=== PATIENT | male | born 1960 | race Caucasian/White ===

== ENCOUNTER 2021-12-06 10:16 | Emergency (ER) | payer SELFPAY ==
[2021-12-06 10:59] LABS: Absolute Lymphocytes (CBC) 1.1 K/uL (0.7-4.9); Hematocrit 42.5 % (39.6-49.0); Lymphocytes % 12.8 % (15.3-44.8); MPV 7.9 fL (7.6-11.3); RBC Red Blood Cell Count 4.69 M/uL (4.33-5.43)
[2021-12-06 11:17] LABS: Albumin 3.4 g/dL (3.4-5.0); Bilirubin Total 0.8 mg/dL (0.2-1.0); Potassium 3.7 mmol/L (3.5-5.1); Protein, Total 8.3 g/dL (6.4-8.2)
--- NOTE | 2021-12-06 12:30 | RAD REPORT ---
EXAM DESCRIPTION: RAD - Foot Left 3 View - 12/06/2021 12:23 pm CLINICAL HISTORY: SWELLING COMPARISON: No comparisons FINDINGS/IMPRESSION: No acute fracture. Osteopenia. No malalignment. No radiographic evidence of ost eomyelitis. MRI more sensitive in the acute phase.
--- NOTE | 2021-12-06 12:31 | RAD REPORT ---
EXAM DESCRIPTION: RAD - Foot Right 3 View - 12/06/2021 12:23 pm CLINICAL HISTORY: Rash, swelling COMPARISON: No comparisons FINDINGS/IMPRESSION: No acute fracture. No malalignment. Plantar aspect calcaneal spurring. No radio graphic evidence of osteomyelitis. MRI is more sensitive in the acute phase. Osteopenia.
--- NOTE | 2021-12-06 12:56 | ER ---
Nurse's Notes [facility] Name: Bean Adams Age: 61 yrs Sex: Male : 1960 Arrival Date: 12/06/2021 Time: 10:17 Bed 5 Private MD: Jignesh Bauer Diagnosis: Cellulitis of right lower limb;Cellulitis of left lower limb Presentation: 12/06 10:32 Chief complaint: Patient states: Sent by Dr. Bauer for blood work to get put on a antibiotics for infection to bilateral feet. Pt reports that the infection has been ongoing since Summer 2020. Denies pain/ fever. Coronavirus screen: Client denies travel out of the [place] in the last 14 days. Ebola Screen: Patient denies exposure to infectious person. Patient denies travel to an Ebola-affected area in the 21 days before illness onset. Initial Sepsis Screen: Does the patient meet any 2 criteria? HR > 90 bpm. No. Patient's initial sepsis screen is negative. Does the patient have a suspected source of infection? Yes: Skin breakdown/wound. Risk Assessment: Do you want to hurt yourself or someone else? Patient reports no desire to harm self or others. Onset of symptoms was February 2021. 10:32 Method Of Arrival: Ambulatory ss 10:32 Acuity: AMPARO 3 ss Triage Assessment: 10:35 General: Appears in no apparent distress. comfortable, Behavior is calm, cooperative. ss Neuro: Level of Consciousness is awake, alert, obeys commands, Oriented to person, place, time, situation. Respiratory: Airway is patent Respiratory effort is even, unlabored, Respiratory pattern is regular, symmetrical. Historical: - Allergies: 10:34 No Known Allergies; ss - Home Meds: 10:35 None [Active]; ss - PMHx: 10:35 None; ss - Immunization history:: Client reports having NOT received the Covid vaccine. - Social history:: Smoking status: Patient denies any tobacco usage or history of. Screenin:21 Abuse screen: Denies threats or abuse. Denies injuries from another. Nutritional jl7 screening: No deficits noted. Tuberculosis screening: No symptoms or risk factors identified. Fall Risk IV access (20 points). Assessment: 10:45 General: Appears in no apparent distress. uncomfortable, Behavior is calm, cooperative, jl7 appropriate for age. Pain: Denies pain. Neuro: Level of Consciousness is awake, alert, obeys commands, Oriented to person, place, time, situation. Cardiovascular: Patient's skin is warm and dry. Respiratory: Airway is patent Respiratory effort is even, unlabored, Respiratory pattern is regular, symmetrical. Derm: Skin is pink, warm \T\ dry. Musculoskeletal: Swelling. 11:00 Reassessment: Pt reports right foot has been like this since last summer, swelling jl7 decreases with elevation, denies pain. Reports Dr. Bauer sent me to ED to have blood work because he didn't want to give me strong antibiotics without having bloodwork to look at my kidneys and he said he wants imaging to see if there's pus under the skin. 12:30 Reassessment: Patient appears in no apparent distress at this time. No changes from jl7 previously documented assessment. Patient and/or family updated on plan of care and expected duration. Pain level reassessed. Patient is alert, oriented x 3, equal unlabored respirations, skin warm/dry/pink. Vital Signs: 10:32 BP 142 / 93; Pulse 110; Resp 16; Temp 97.0(TE); Pulse Ox 98% on R/A; Weight 113.4 kg; ss Height 5 ft. 10 in. (177.80 cm); Pain 0/10; 11:21 BP 149 / 106; Pulse 106; Resp 15; Pulse Ox 98% ; Pain 0/10; jl7 12:30 BP 145 / 95; Pulse 100; Resp 15; Pulse Ox 99% ; jl7 10:32 Body Mass Index 35.87 (113.40 kg, 177.80 cm) ED Course: 10:17 Patient arrived in ED. am2 10:17 Jignesh Bauer MD is Private Physician. am2 10:34 Noel Ramos NP is PHCP. pm1 10:34 Sidney Solomon DO is Attending Physician. pm1 10:34 Triage completed. ss 10:34 Arm band placed on left wrist. ss 11:16 Humza Zuñiga RN is Primary Nurse. jl7 11:21 Patient has correct armband on for positive identification. Bed in low position. Call jl7 light in reach. Side rails up X 1. Pulse ox on. NIBP on. Warm blanket given. 11:21 Initial lab(s) drawn, by me, sent to lab. Inserted saline lock: 20 gauge in left jl7 antecubital area, using aseptic technique. Blood collected. 12:25 Foot Right 3 View XRAY In Process Unspecified. EDMS 12:25 Foot Left 3 View XRAY In Process Unspecified. EDMS 12:56 Jignesh Bauer MD is Referral Physician. pm1 13:30 No provider procedures requiring assistance completed. IV discontinued, intact, jl7 bleeding controlled, No redness/swelling at site. Pressure dressing applied. Administered Medications: No medications were administered Outcome: 12:56 Discharge ordered by MD. pm1 13:30 Discharged to home ambulatory. jl7 13:30 Condition: stable 13:30 Discharge instructions given to patient, family, Instructed on discharge instructions, follow up and referral plans. medication usage, Demonstrated understanding of instructions, follow-up care, medications, Prescriptions given X 2. 13:32 Patient left the ED. jl7 Signatures: Dispatcher [employer] EDNC Whitley Hull RN RN Noel Ramos, HEAD START TEACHER HEAD START TEACHER pm1 Humza Zuñiga RN RN jl7 Mayelin Rodriguez am2
--- NOTE | 2021-12-06 12:57 | EDPHYS ---
Physician Documentation [facility] Name: Bean Adams Age: 61 yrs Sex: Male : 1960 Arrival Date: 12/06/2021 Time: 10:17 Bed 5 Private MD: Jignesh Bauer ED Physician Sidney Solomon HPI: 12/06 10:39 This 61 yrs old Male presents to ER via Ambulatory with complaints of Foot problem. pm1 10:39 Onset: The symptoms/episode began/occurred February 2021. Associated signs and symptoms: pm1 Pertinent positives: Redness swelling and flaking of skin to bilateral feet, Pertinent negatives: Pain, fever. Modifying factors: The patient symptoms are alleviated by Antifungal cream OTC, and elevation of feet. Swelling is resolved when he wakes up in the morning. The patient has not experienced similar symptoms in the past. The patient has been recently seen by a physician: Dr. Bauer. 10:39 Patient was seen in the office today by Dr. Bauer was sent to the ER for further pm1 evaluation and treatment with blood work and imaging. Patient refused to be admitted by Dr. Bauer. Historical: - Allergies: 10:34 No Known Allergies; ss - Home Meds: 10:35 None [Active]; ss - PMHx: 10:35 None; ss - Immunization history:: Client reports having NOT received the Covid vaccine. - Social history:: Smoking status: Patient denies any tobacco usage or history of. ROS: 10:39 Constitutional: Negative for fever, chills, and weight loss, Cardiovascular: Negative pm1 for chest pain, palpitations, and edema, Respiratory: Negative for shortness of breath, cough, wheezing, and pleuritic chest pain, Abdomen/GI: Negative for abdominal pain, nausea, vomiting, diarrhea, and constipation, MS/Extremity: Negative for injury and deformity. 10:39 Skin: Positive for erythema, swelling, Flaking skin to bilateral feet. 10:39 All other systems are negative. Exam: 10:39 Constitutional: This is a well developed, well nourished patient who is awake, alert, pm1 and in no acute distress. Head/Face: Normocephalic, atraumatic. 10:39 Abdomen/GI: Soft, non-tender, with normal bowel sounds. No distension or tympany. No guarding or rebound. No evidence of tenderness throughout. Back: No spinal tenderness. No costovertebral tenderness. Full range of motion. Skin: Warm, dry with normal turgor. Normal color with no rashes, no lesions, and no evidence of cellulitis. MS/ Extremity: Pulses equal, no cyanosis. Neurovascular intact. Full, normal range of motion. 10:39 Cardiovascular: Exam negative for acute changes, Rate: normal, Rhythm: regular, Pulses: no pulse deficits are appreciated. 10:39 Respiratory: Exam negative for acute changes, respiratory distress, shortness of breath. 10:39 Neuro: Exam negative for acute changes, Orientation: is normal, Mentation: is normal, Motor: is normal, moves all fours. Vital Signs: 10:32 BP 142 / 93; Pulse 110; Resp 16; Temp 97.0(TE); Pulse Ox 98% on R/A; Weight 113.4 kg; ss Height 5 ft. 10 in. (177.80 cm); Pain 0/10; 11:21 BP 149 / 106; Pulse 106; Resp 15; Pulse Ox 98% ; Pain 0/10; jl7 12:30 BP 145 / 95; Pulse 100; Resp 15; Pulse Ox 99% ; jl7 10:32 Body Mass Index 35.87 (113.40 kg, 177.80 cm) ss MDM: 10:39 Patient medically screened. pm1 12:16 ED course: Bedside ultrasound performed to left and no abscess seen. Cobblestoning pm1 apparent on ultrasound which correlates with impression of cellulitis. 12:33 Refusal of service: The patient/guardian displays adequate decision making capability pm1 and despite a detailed discussion of alternatives, benefits, risks, and consequences refuses: Admission to the hospital for further work-up and treatment. 12:34 Physician consultation: Jignesh Bauer MD was called at 12:34, would like medications pm1 started, Bactrim and Santyl, wound care center contact information. 12:39 Data reviewed: vital signs. Data interpreted: Pulse oximetry: on room air is 98 %. pm1 Interpretation: normal. Counseling: I had a detailed discussion with the patient and/or guardian regarding: the historical points, exam findings, and any diagnostic results supporting the discharge/admit diagnosis, lab results, radiology results, the need for outpatient follow up, to return to the emergency department if symptoms worsen or persist or if there are any questions or concerns that arise at home. 13:20 ED course: Contacted wound care and gave them his information. they will set up an pm1 appointment with him. 12/06 10:39 Order name: CBC with Diff; Complete Time: 11:05 pm1 12/06 10:39 Order name: CMP; Complete Time: 11:19 pm1 12/06 10:39 Order name: IV Saline Lock; Complete Time: 10:49 pm1 12/06 11:05 Order name: Foot Right 3 View XRAY; Complete Time: 12:32 pm1 12/06 11:05 Order name: Foot Left 3 View XRAY; Complete Time: 12:32 pm1 Administered Medications: No medications were administered Disposition: 22:06 Co-signature as Attending Physician, Sidney BOYKIN was immediately available on-site ms3 in the Emergency Department for consultation in the care of the patient.. Disposition Summary: 12/06/21 12:56 Discharge Ordered Location: Home pm1 Problem: new pm1 Symptoms: have improved pm1 Condition: Stable pm1 Diagnosis - Cellulitis of right lower limb pm1 - Cellulitis of left lower limb pm1 Followup: pm1 - With: Jignseh Bauer MD - When: 2 - 3 days - Reason: Recheck today's complaints, Continuance of care, Re-evaluation by your physician Discharge Instructions: - Discharge Summary Sheet pm1 - Cellulitis, Adult pm1 Forms: - Medication Reconciliation Form pm1 - Thank You Letter pm1 - Antibiotic Education pm1 - Prescription Opioid Use pm1 Prescriptions: - Bactrim DS 800-160 mg Oral Tablet - take 1 tablet by ORAL route every 12 hours for 10 days; 20 tablet; Refills: 0, pm1 Product Selection Permitted - Santyl 250 unit/gram Topical ointment - apply 1 application by TOPICAL route once daily; 90 gram; Refills: 0, Product pm1 Selection Permitted Signatures: Dispatcher [employer] Whitley Martin, RN RN Noel Perez, OPERATIONAL INTELLIGENCE ANALYST OPERATIONAL INTELLIGENCE ANALYST pm1 Sidney Solomon DO DO ms3
[2021-12-06 13:39] VITALS: TEMP 97
[2021-12-06 13:41] VITALS: BP 145/95; O2SAT 99
== END 2021-12-06 13:32 | disposition home or self-care (01) ==
LOC: ER 10:16
DX: L03.116 Cellulitis of left lower limb (principal); L03.115 Cellulitis of right lower limb
CPT/HCPCS: 36415; 80053; 85025; 99284